=== PATIENT | female | born 1990 | race Caucasian/White ===

== ENCOUNTER → 2023-05-20 09:15 | Outpatient (REF) | payer OTHER, SELFPAY | LOC: WDC 09:15 | PROVIDERS: ATTENDING PHYSICIAN Family Medicine | DX: N63.20 Unspecified lump in the left breast, unspecified quadrant (principal); N63.24 Unspecified lump in the left breast, lower inner quadrant | CPT/HCPCS: 76642; 77062; 77066 ==

== ENCOUNTER → 2024-02-01 13:00 | Outpatient (REF) | payer OTHER, SELFPAY | LOC: PNTC 13:00 | PROVIDERS: ATTENDING PHYSICIAN Nurse Practitioner Family | DX: O36.80X0 Pregnancy with inconclusive fetal viability, not applicable or unspecified (principal) | CPT/HCPCS: 76801 ==

== ENCOUNTER → 2024-02-29 13:59 | Outpatient (REF) | payer OTHER, SELFPAY | LOC: PNTC 13:59 | PROVIDERS: ATTENDING PHYSICIAN Obstetrics & Gynecology | DX: Z36.0 Encounter for antenatal screening for chromosomal anomalies (principal); Z36.82 Encounter for antenatal screening for nuchal translucency | CPT/HCPCS: 76801; 76813 ==

== ENCOUNTER 2024-03-07 12:16 | Emergency (ER) | payer OTHER, SELFPAY ==
[2024-03-07 12:35] VITALS: BP 123/67
[2024-03-07] MEDS: ZOFRAN ODT (ORALLY DISINTEGRATING) 4 MG PO (12:45)
--- NOTE | 2024-03-07 13:33 | ED.GENMED ---
History of Present Illness
General
Chief Complaint: Fever
Source: patient and spouse
Exam Limitations: none
Time Seen by Provider: 03/07/24 13:33
Nursing documentation reviewed up to this point in time: agreed with
History of Present Illness
History of Present Illness:
33-year-old female 13 weeks is here from her PCP office for IV fluids for dehydration as her heart rate was 110 in the doctor's office. She has had nausea and vomiting for the past 24 hours, she was tested for flu a positive at the
doctor's office. She denies abdominal pain, shortness of breath, vaginal bleeding or discharge. She had an ultrasound last week with her OB doctor which was fine.
Review of Systems
Review of Systems
Allergies reviewed?: Yes
All Other Systems: ROS reviewed and negative except as documented in HPI and ROS
Constitutional: Denies fever or chills
EENT: Denies sore throat
Respiratory: Reports trouble breathing
Cardiac: Reports chest pain
ABD/GI: Reports abdominal pain, nausea and vomiting (yesterday, none today)
Phy Exam
Physical Exam
Physical Exam:
GENERAL: No acute distress. A&Ox3.
CONSTITUTIONAL: Afebrile.
EYES: clear, conjunctivae normal
ENMT: moist mucus membranes, Pharynx nl
RESPIRATORY: Regular respirations, nonlabored, lungs clear.
CARDIOVASCULAR: Regular rate and rhythm, no murmurs, no rubs.
GI: Soft, nontender, normal BS
MUSCULOSKELETAL: Moves with ease. Well perfused.
SKIN: Warm, dry, pink
PSYCH: Normal mood and affect. Well kept, interactive and appropriate
NEUROLOGIC: Awake, alert and oriented. No focal neurological deficits
Course
Orders/Labs/Results
Orders:
Orders
03/07/24 12:42
Ondansetron Orally Disint [Zofran Odt (Orally Disintegrating)] 4 mg .ROUTE .[facility]
03/07/24 12:45
Ondansetron Orally Disint [Zofran Odt (Orally Disintegrating)] 4 mg PO NOW STA
03/07/24 12:38
03/07/24 12:38
Vital Signs
Initial and Last Documented VS:
Initial Vital Signs
Temp Pulse Resp BP Pulse Ox
98.3 F 101 16 123/67 100
03/07/24 12:35 03/07/24 12:35 03/07/24 12:35 03/07/24 12:35 03/07/24 12:35
Last Documented Vital Signs
Temp Pulse Resp BP Pulse Ox
98.3 F 99 16 123/67 100
03/07/24 12:35 03/07/24 13:23 03/07/24 12:35 03/07/24 12:35 03/07/24 13:23
MDM/Problems Addressed
MDM/Problems Addressed:
33-year-old female 13 weeks is here from her PCP office for IV fluids for dehydration as her heart rate was 110 in the doctor's office. She has had nausea and vomiting for the past 24 hours, she was tested for flu a positive at the
doctor's office. She denies abdominal pain, shortness of breath, vaginal bleeding or discharge. She had an ultrasound last week with her OB doctor which was fine.
ED Attending Note
-
Portions of this chart may have been created with voice recognition software.� Occasional wrong word or��sound alike� substitutions may have occurred due to the inherent limitations of voice recognition software.
Discharge Plan
Departure
Patient Disposition: Home (Routine Discharge)
Date of Disposition: 03/07/24
Time of Disposition: 13:26
Patient with high blood pressure during this ER visit?: No
Condition: Good
Discharge Problem:
Influenza A
Instructions: Flu in adults - Discharge instructions, Dehydration in adults - ED discharge instructions
Prescriptions:
No Action
PNV cmb#95-ferrous fumarate-FA [] 1 EACH tablet
1 ea PO DAILY
ferrous sulfate [Iron (ferrous sulfate)] 325 mg (65 mg iron) Tablet
325 mg PO DAILY
acetaminophen 325 mg Tablet
650 mg PO Q4HPRN PRN (Reason: mild pain) Qty: 0 0RF
ibuprofen 600 mg Tablet
600 mg PO Q6HPRN PRN (Reason: moderate pain/cramps) Qty: 0 0RF
Activity Restrictions/Additional Instructions:
As we discussed, I do not suspect any significant dehydration, we can assume you have mild dehydration since you are unable to hold anything down for the past day, after drinking 12 ounces of fluid here, your heart rate is now normal at 82. Use the
Zofran you have at home if needed for nausea, continue to drink at least eight 8 ounce glasses of water/fluid daily.
Follow up with you OB doctor as scheduled
Return here immediately for repeated vomiting, despite the Zofran, vaginal bleeding or discharge, abdominal pain or feeling sicker in any way.
Interventions
Interventions:
*Risk Screen - Suicide Last Done: 03/07/24 12:35
Discharge Date and Time
Print Language: ROMANSH
== END 2024-03-07 13:47 | disposition home or self-care (01) ==
LOC: EMR 12:16
PROVIDERS: FAMILY PHYSICIAN Family Medicine; OTHER PHYSICIAN Obstetrics & Gynecology
DX: O99.511 Diseases of the respiratory system complicating pregnancy, first trimester (principal); O99.281 Endocrine, nutritional and metabolic diseases complicating pregnancy, first trimester; Z3A.13 13 weeks gestation of pregnancy; J10.1 Influenza due to other identified influenza virus with other respiratory manifestations; E86.0 Dehydration; R11.2 Nausea with vomiting, unspecified; R10.9 Unspecified abdominal pain
CPT/HCPCS: 99283

== ENCOUNTER → 2024-04-24 14:17 | Outpatient (REF) | payer OTHER, SELFPAY | LOC: PNTC 14:17 | PROVIDERS: ATTENDING PHYSICIAN Student in an Organized Health Care Education/Training Program | DX: Z34.90 Encounter for supervision of normal pregnancy, unspecified, unspecified trimester (principal) | CPT/HCPCS: 76805 ==

== ENCOUNTER → 2024-06-05 15:47 | Outpatient (REF) | payer OTHER, SELFPAY | LOC: PNTC 15:47 | PROVIDERS: ATTENDING PHYSICIAN Obstetrics & Gynecology | DX: O28.5 Abnormal chromosomal and genetic finding on antenatal screening of mother (principal) | CPT/HCPCS: 76816 ==

== ENCOUNTER → 2024-07-17 14:49 | Outpatient (REF) | payer OTHER, SELFPAY | LOC: PNTC 14:49 | PROVIDERS: ATTENDING PHYSICIAN Obstetrics & Gynecology | DX: O28.5 Abnormal chromosomal and genetic finding on antenatal screening of mother (principal); O28.8 Other abnormal findings on antenatal screening of mother | CPT/HCPCS: 76816 ==

== ENCOUNTER → 2024-07-21 08:27 | Outpatient (REF) | payer OTHER, SELFPAY | LOC: HWRAD 08:27 | PROVIDERS: ATTENDING PHYSICIAN Obstetrics & Gynecology; FAMILY PHYSICIAN Family Medicine | DX: I82.401 Acute embolism and thrombosis of unspecified deep veins of right lower extremity (principal) | CPT/HCPCS: 93971 ==

== ENCOUNTER → 2024-07-24 11:16 | Outpatient (REF) | payer OTHER, SELFPAY | LOC: RAD 11:16 | PROVIDERS: ATTENDING PHYSICIAN Student in an Organized Health Care Education/Training Program; FAMILY PHYSICIAN Family Medicine | DX: I82.401 Acute embolism and thrombosis of unspecified deep veins of right lower extremity (principal) | CPT/HCPCS: 93971 ==

== ENCOUNTER → 2024-07-25 11:04 | Outpatient (REF) | payer OTHER, SELFPAY | LOC: HWRAD 11:04 | PROVIDERS: ATTENDING PHYSICIAN Student in an Organized Health Care Education/Training Program; FAMILY PHYSICIAN Family Medicine | DX: I87.2 Venous insufficiency (chronic) (peripheral) (principal) | CPT/HCPCS: 93971 ==

== ENCOUNTER → 2024-09-03 14:29 | Observation (INO) | payer OTHER, SELFPAY ==
[2024-09-03 05:19] VITALS: BP 120/68; BMI 25.2
[2024-09-03 10:55] LABS: Hematocrit 38.3 % (37.0-47.0); Hemoglobin 13.2 g/dL (12.0-16.0); Mean Corp Hgb Conc. 34.5 g/dL (33.0-37.0); Mean Corpuscular Volume 94.8 fL (81.0-99.0); Nucleated Red Blood Cells % 0 %; Platelet Count 145 10^3/uL (130-400); Red Cell Dist. Width 13.3 % (11.5-14.5)
== END | disposition home or self-care (01) ==
LOC: LDRP 14:29
PROVIDERS: ADMITTING PHYSICIAN Obstetrics & Gynecology; FAMILY PHYSICIAN Family Medicine
DX: O47.1 False labor at or after 37 completed weeks of gestation (principal); Z3A.39 39 weeks gestation of pregnancy
CPT/HCPCS: 36415; 85025; 86850; 86900; 86901; G0378

== ENCOUNTER 2024-09-03 21:04 | Inpatient (IN) | payer OTHER, SELFPAY ==
[2024-09-03 21:28] VITALS: BP 113/74; BMI 24.8
[2024-09-03 21:40] LABS: Hematocrit 33.7 % (37.0-47.0); Hemoglobin 11.8 g/dL (12.0-16.0); Mean Corp Hgb Conc. 35.0 g/dL (33.0-37.0); Mean Corpuscular Volume 93.4 fL (81.0-99.0); Nucleated Red Blood Cells % 0 %; Platelet Count 149 10^3/uL (130-400); Red Cell Dist. Width 13.3 % (11.5-14.5)
[2024-09-03] MEDS: SUBLIMAZE 100 MCG EPIDURAL (23:23)
[2024-09-03] MEDS: FENTANYL/BUPIVACAINE 100 EPIDURAL (23:23)
[2024-09-03] MEDS: LR 1000 IV (23:23)
[2024-09-04] MEDS: TUMS CHEWABLE TABLET 400 MG PO (01:43)
[2024-09-04] MEDS: LR 1000 IV (06:01)
[2024-09-04] MEDS: FENTANYL/BUPIVACAINE 100 EPIDURAL (07:32)
[2024-09-04] MEDS: PRENATAL PLUS PO (08:00)
[2024-09-04] MEDS: MOTRIN 600 MG PO ×2 (13:18→19:40)
[2024-09-04] MEDS: COLACE 100 MG PO (19:40)
[2024-09-05] MEDS: TYLENOL 650 MG PO ×2 (00:14→05:02)
[2024-09-05] MEDS: MOTRIN 600 MG PO ×2 (05:02→12:21)
[2024-09-05 05:46] LABS: Hematocrit 29.1 % (37.0-47.0); Hemoglobin 10.0 g/dL (12.0-16.0)
[2024-09-05] MEDS: PRENATAL PLUS 1 TABLET PO (08:45)
[2024-09-05] MEDS: COLACE 100 MG PO (08:45)
[2024-09-05 12:56] LABS: Syphilis/T. pallidum Ab Reflex Negative (Negative)
== END 2024-09-05 17:30 | disposition home or self-care (01) | DRG 807 ==
LOC: LDRP 21:04
PROVIDERS: Obstetrics & Gynecology; ADMITTING PHYSICIAN Obstetrics & Gynecology
PROC: 0KQM0ZZ Repair Perineum Muscle, Open Approach (ICD-10-PCS; 2024-09-04)
PROC: 10E0XZZ Delivery of Products of Conception, External Approach (ICD-10-PCS; 2024-09-04)
PROC: 10907ZC Drainage of Amniotic Fluid, Therapeutic from Products of Conception, Via Natural or Artificial Opening (ICD-10-PCS; 2024-09-04)
DX: O26.853 Spotting complicating pregnancy, third trimester (principal); Z37.0 Single live birth; Z3A.39 39 weeks gestation of pregnancy; O69.81X0 Labor and delivery complicated by cord around neck, without compression, not applicable or unspecified; O70.1 Second degree perineal laceration during delivery
CPT/HCPCS: 85014; 85018; 85025; 86780; 86850; 86900; 86901; G0378